=== PATIENT | female | born 1940 | race Caucasian/White ===

== ENCOUNTER 2017-08-02 12:13 | Inpatient (IN) | payer OTHER ==
[~2017-08-02] VITALS: Ht 165.1 cm; Wt 73.5 kg
[2017-08-02] MEDS ORDERED: VASOTEC20 M1 PO (12:56)
[2017-08-02] MEDS ORDERED: PLAVIX75 MG PO (12:57)
[2017-08-02] MEDS ORDERED: ZOCOR20 MG PO (12:57)
[2017-08-08] MEDS ORDERED: CLONAZEPAM1 MG PO (13:40)
[2017-08-08] MEDS ORDERED: GABAPENTIN800 MG PO (13:40)
[2017-08-08] MEDS ORDERED: CIPROFLOXACIN750 MG PO (13:40)
[2017-08-08] MEDS ORDERED: DOCUSATE SODIU100 MG PO (13:40)
[2017-08-08] MEDS ORDERED: PERCOCET 5-3251 EACH PO (13:40)
== END 2017-08-08 15:49 | disposition home or self-care (01) | DRG 455 ==
LOC: PED 08-07 05:15 → O/R 08-07 05:15 → SURH 08-07 12:30 → PED 08-07 16:45
PROVIDERS: Orthopaedic Surgery Orthopaedic Surgery of the Spine
PROC: 0SG30AJ Fusion of Lumbosacral Joint with Interbody Fusion Device, Posterior Approach, Anterior Column, Open Approach (ICD-10-PCS; 2017-08-07)
PROC: 0SG0071 Fusion of Lumbar Vertebral Joint with Autologous Tissue Substitute, Posterior Approach, Posterior Column, Open Approach (ICD-10-PCS; 2017-08-07)
PROC: 00NY0ZZ Release Lumbar Spinal Cord, Open Approach (ICD-10-PCS; 2017-08-07)
PROC: 07DS3ZZ Extraction of Vertebral Bone Marrow, Percutaneous Approach (ICD-10-PCS; 2017-08-07)
PROC: 0ST40ZZ Resection of Lumbosacral Disc, Open Approach (ICD-10-PCS; principal; 2017-08-07 13:00)
DX: M47.27 Other spondylosis with radiculopathy, lumbosacral region (principal); M43.17 Spondylolisthesis, lumbosacral region; M51.17 Intervertebral disc disorders with radiculopathy, lumbosacral region; I10 Essential (primary) hypertension